=== PATIENT | female | born 1985 | race American Indian/Alaskan Native ===

== ENCOUNTER 2022-02-10 11:23 | Emergency (ER) | payer OTHER ==
[2022-02-10 11:55] VITALS: BP 114/72
== END 2022-02-10 23:50 | disposition left against medical advice (07) ==
LOC: ED 11:23
DX: R11.2 Nausea with vomiting, unspecified (principal); R19.7 Diarrhea, unspecified; Z53.21 Procedure and treatment not carried out due to patient leaving prior to being seen by health care provider